=== PATIENT | male | born 1960 | race Caucasian/White ===

== ENCOUNTER 2017-06-09 14:04 | Inpatient (IN) | payer OTHER ==
[~2017-06-09] VITALS: Ht 182.9 cm; Wt 68.0 kg
[2017-06-09 18:41] VITALS: BP 114/77; PULSE 79; RESP 18; TEMP 97.7; O2SAT 97
[2017-06-09] MEDS ORDERED: diphenhydrAMINE HCL 50 MG CAP - HS PRN PO (19:15)
[2017-06-09] MEDS ORDERED: diphenhydrAMINE HCL 50 MG/ML VIAL IM PRN (19:15)
[2017-06-09] MEDS ORDERED: hydrOXYzine HCL 50 MG TAB PO PRN (19:15)
[2017-06-09] MEDS ORDERED: ALUMINUM/MAGNESIUM/SIMETH 30 ML CUP PO PRN (19:15)
[2017-06-09] MEDS ORDERED: diphenhydrAMINE HCL 50 MG/ML VIAL - HS PRN IM (19:15)
[2017-06-09] MEDS ORDERED: MAGNESIUM HYDROXIDE SUSP 30 ML CUP PO PRN (19:15)
[2017-06-09] MEDS ORDERED: LORazepam 1 MG TAB PO PRN (20:00)
[2017-06-09] MEDS ORDERED: FLUMAZENIL 0.5 MG/5 ML VIAL IV PUSH PRN (20:00)
[2017-06-09] MEDS ORDERED: diphenhydrAMINE HCL 50 MG CAP PO PRN (20:00)
[2017-06-09] MEDS ORDERED: LORazepam 2 MG TAB PO PRN (20:00)
[2017-06-09] MEDS ORDERED: HALOPERIDOL LACTATE 5 MG/ML AMP IM PRN (20:00)
[2017-06-09] MEDS ORDERED: LORazepam 2 MG/ML VIAL IV PUSH PRN ×4 (20:00)
[2017-06-09] MEDS: REMOVE OLD NICOTINE PATCH T-DERMAL SCH (20:31)
[2017-06-10 06:12] VITALS: BP 151/84; PULSE 80; RESP 16; TEMP 97.7; O2SAT 98
[2017-06-10 07:26] LABS: BICARBONATE 30.8 MEQ/L (21.0-32.0); BLOOD UREA NITROGEN 19 MG/DL (7-18); CALCIUM 8.2 MG/DL (8.5-10.1); CHLORIDE 107 MEQ/L (98-107); CHOLESTEROL 116 MG/DL (120-200); CREATININE 0.81 MG/DL (0.60-1.30); GLOMERULAR FILTRATION RATE 98 ML/MIN (>89); GLUCOSE,RANDOM 96 MG/DL (74-106); SODIUM (NA) 142 MEQ/L (136-145); TRIGLYCERIDES 54 MG/DL (42-150)
[2017-06-10 07:29] LABS: CHOLESTEROL/ HDL RATIO 1.86 RATIO; HDL CHOLESTEROL 62.1 MG/DL (40.0-60.0); LDL CHOLESTEROL 43 MG/DL (0-99)
[2017-06-10] MEDS: NICOTINE 21 MG/24 HR PATCH T-DERMAL SCH (09:00)
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
[2017-06-10] MEDS ORDERED: IBUPROFEN SUSP 100 MG/5 ML UDC PO PRN (14:00)
[2017-06-10 16:03] LABS: HEMOGLOBIN A1C 5.2 % (4.3-6.0)
[2017-06-10 16:45] VITALS: BP 124/78; PULSE 86; RESP 18; TEMP 99.3; O2SAT 96
[2017-06-10] MEDS: REMOVE OLD NICOTINE PATCH T-DERMAL SCH (20:37)
[2017-06-11] MEDS: IBUPROFEN 600 MG TAB PO PRN ×3 (04:26→16:55)
[2017-06-11 05:42] VITALS: BP 153/94; PULSE 85; RESP 18; TEMP 97.6; O2SAT 98
[2017-06-11] MEDS: NICOTINE 21 MG/24 HR PATCH T-DERMAL SCH (08:58)
[2017-06-11] MEDS: REMOVE OLD NICOTINE PATCH T-DERMAL SCH (08:59)
[2017-06-11] MEDS: FOLIC ACID 1 MG TAB PO SCH (09:00)
[2017-06-11] MEDS: THIAMINE HCL 100 MG TAB PO SCH (09:00)
--- NOTE | 2017-06-11 11:38 | HHI.PYPN ---
Subjective Chief Complaint: Depression Remarks Patient seen and examined with nurse. Chart reviewed. Case discussed with nursing staff. Patient refused EKG yesterday and so psychotropics were held yesterday evening. He slept most of the day yesterday per report. Case discussed in treatment team. On my examination today, the patient continues to complain of low mood, which he ties to his pain complaints. Endorses vague suicidal ideation but contracts for safety on the inpatient unit. Denies audiovisual hallucinations. Denies subjective complaints of withdrawal. Besides the chronic hand pain, no other physical complaints. Review of Systems Except as stated in HPI: all other systems reviewed are Neg Mental Status Examination Appearance: Disheveled Consciousness: Alert Orientation: x4 Motor Activity: Other (no hand tremor, no diaphoresis, no other signs of withdrawal noted. No other motor abnormalities noted.) Speech: Unremarkable Language: Adequate Fund of Knowledge: Adequate Attention and Concentration: Adequate Memory: Unremarkable Mood: Other (dysphoric) Affect: Blunt Thought Process & Associations: Intact, Logical, Linear Thought Content: Appropriate Hallucination Type: None Delusion Type: None Suicidal Ideation: Yes (vague) Suicidal Plan: No Suicidal Intention: No Homicidal Ideation: No Homicidal Plan: No Homicidal Intention: No Insight: Fair Judgment: Adequate (fair) Results Labs Labs reviewed. Patient did allow EKG and this was read as sinus rhythm with a QTcH of 407 ms, not prolonged. Vitals/IOs Vital Signs Date Time Temp Pulse Resp B/P (MAP) Pulse Ox O2 Delivery O2 Flow Rate FiO2 06/11/17 05:42 97.6 85 18 153/94 (113) 98 Assessment & Plan Problem List: (1) Adjustment disorder with depressed mood ICD Codes: F43.21 - Adjustment disorder with depressed mood (2) Polysubstance abuse ICD Codes: F19.10 - Other psychoactive substance abuse, uncomplicated Assessment & Plan Start Seroquel and Elavil this evening. To consider titrating these agents over the weekend to effect. Follow up hospitalist recommendations. Continue to monitor for withdrawal with CIWA. Continue to monitor on an inpatient unit. Continue other medications and care as ordered. Justification for Cont. Inpt. Monitoring for impairment in safety, none noted. Discharge Planning Possible discharge beginning of next week. Request HC Surrog/Guard Advoc?: No Raffy Doty MD Jun 11, 2017 11:38
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
--- NOTE | 2017-06-11 16:36 | RADRPT ---
EXAM DATE/TIME: 06/11/2017 16:08 [facility] COMPARISON: No previous studies available for comparison. INDICATIONS : Left hand pain. MEDICAL HISTORY : Depressive disorder. SURGICAL HISTORY : None. ENCOUNTER: Initial ACUITY: 4 - 6 months PAIN SCORE: 10/10 LOCATION: Left upper extremity whole left hand FINDINGS: Findings consistent with minimal erosive osteoarthritis in the DIPs and PIP joints. There is very mi nimal juxta-articular osteoporosis. No erosive changes. CONCLUSION: Probable osteoarthritis Equivocal findings of juxta-articular osteoporosis can be seen with inflammatory arthritis. Paul Parry MD FACR on June 11, 2017 at 16:33 Board Certified Radiologist. This report was verified electronically.
[2017-06-11 18:42] VITALS: PULSE 82; RESP 18; TEMP 97.6; O2SAT 99
[2017-06-11] MEDS: QUEtiapine FUMARATE 25 MG TAB PO SCH (19:56)
[2017-06-11] MEDS: AMITRIPTYLINE HCL 25 MG TAB PO SCH (19:56)
[2017-06-12 06:07] VITALS: BP 143/85; PULSE 71; RESP 16; TEMP 97.2
[2017-06-12] MEDS: THIAMINE HCL 100 MG TAB PO SCH (09:13)
[2017-06-12] MEDS: FOLIC ACID 1 MG TAB PO SCH (09:13)
[2017-06-12 10:35] LABS: ALBUMIN 3.3 GM/DL (3.4-5.0); DIRECT BILIRUBIN ADULT 0.1 MG/DL (0.0-0.2)
[2017-06-12 10:39] LABS: INDIRECT BILIRUBIN 0.6 MG/DL (0.0-0.8); TOTAL BILIRUBIN ADULT 0.7 MG/DL (0.2-1.0); TOTAL PROTEIN 6.8 GM/DL (6.4-8.2)
[2017-06-12 10:39] LABS: RHEUMATOID FACTOR SCREEN NEGATIVE (NEGATIVE)
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
[2017-06-12] MEDS: IBUPROFEN 600 MG TAB PO PRN ×2 (12:40→20:53)
[2017-06-12] MEDS ORDERED: cloNIDine HCL 0.1 MG TAB PO ONE (14:45)
[2017-06-12] MEDS: ACETAMINOPHEN 325 MG TAB PO PRN (15:57)
[2017-06-12 17:22] VITALS: BP 149/92; PULSE 76; RESP 18; TEMP 98.5; O2SAT 99
[2017-06-12] MEDS: QUEtiapine FUMARATE 25 MG TAB PO SCH (20:54)
[2017-06-12] MEDS: AMITRIPTYLINE HCL 25 MG TAB PO SCH (20:54)
[2017-06-12] MEDS: cloNIDine HCL 0.1 MG TAB PO SCH (20:55)
--- NOTE | 2017-06-13 00:12 | EKG ---
Date Performed: 06/11/2017 Time Performed: 12:59:20 PTAGE: 57 years EKG: Sinus rhythm MINIMAL VOLTAGE CRITERIA FOR LVH, CONSIDER NORMAL VARIANT BORDERLINE ECG NO PREVIOUS TRACING DOCTOR: Kevin Trivedi Interpretating Date/Time 06/13/2017 00:09:59
[2017-06-13] MEDS: cloNIDine HCL 0.1 MG TAB PO SCH ×3 (05:05→21:22)
[2017-06-13] MEDS: IBUPROFEN 600 MG TAB PO PRN ×3 (05:20→20:11)
[2017-06-13 05:44] VITALS: BP 121/88; PULSE 77; RESP 18; TEMP 98.1; O2SAT 98
[2017-06-13] MEDS: predniSONE 20 MG TAB PO SCH (09:36)
[2017-06-13] MEDS: FOLIC ACID 1 MG TAB PO SCH (09:36)
[2017-06-13] MEDS: THIAMINE HCL 100 MG TAB PO SCH (09:36)
[2017-06-13] MEDS: ACETAMINOPHEN 325 MG TAB PO PRN ×2 (09:37→16:03)
--- NOTE | 2017-06-13 11:25 | HHI.PYPN ---
Subjective Chief Complaint: Depression Remarks Pt seen and discussed with staff. He remains depressed but SI has decreased. He has been attending therapeutic groups. He states that he feels better when he gets out of bed and goal this afternoon is to stay in day area and participate in activities. He c/o of poor sleep. No SI/HI. Mental Status Examination Appearance: Disheveled Consciousness: Alert Orientation: x4 Motor Activity: Other (no hand tremor, no diaphoresis, no other signs of withdrawal noted. No other motor abnormalities noted.) Speech: Unremarkable Language: Adequate Fund of Knowledge: Adequate Attention and Concentration: Adequate Memory: Unremarkable Mood: Other (dysphoric) Affect: Blunt Thought Process & Associations: Intact, Logical, Linear Thought Content: Appropriate Hallucination Type: None Delusion Type: None Suicidal Ideation: Yes (decreased) Suicidal Plan: No Suicidal Intention: No Homicidal Ideation: No Homicidal Plan: No Homicidal Intention: No Insight: Fair Judgment: Adequate (fair) Results Vitals/IOs Vital Signs Date Time Temp Pulse Resp B/P (MAP) Pulse Ox O2 Delivery O2 Flow Rate FiO2 06/13/17 05:44 98.1 77 18 121/88 (99) 98 Assessment & Plan Problem List: (1) Adjustment disorder with depressed mood ICD Codes: F43.21 - Adjustment disorder with depressed mood (2) Polysubstance abuse ICD Codes: F19.10 - Other psychoactive substance abuse, uncomplicated Assessment & Plan Will titrate seroquel to 100mg PO QHS for mood and sleep. Estimated LOS: days Justification for Cont. Inpt. impairments in safety Request HC Surrog/Guard Advoc?: Brisa Lee MD Jun 13, 2017 11:25
--- NOTE | 2017-06-13 12:29 | HHI.PR ---
Subjective Remarks Patient seen and examined this morning. Afebrile less unstable. He is complaining of bilateral wrist pain. ESR is 15 and rheumatoid factor is negative so unlikely to be rheumatoid. This wrist pain is likely to be osteoarthritis. He is also currently withdrawing from alcohol. Objective Vitals Vital Signs Date Time Temp Pulse Resp B/P (MAP) Pulse Ox O2 Delivery O2 Flow Rate FiO2 06/13/17 05:44 98.1 77 18 121/88 (99) 98 06/12/17 17:22 98.5 76 18 149/92 (111) 99 Result Diagram: 06/10/17 0635 Imaging Last Impressions Hand X-Ray 06/11/17 0000 Signed Impressions: Service Date/Time: Sunday, June 11, 2017 16:08 - CONCLUSION: Probable osteoarthritis Equivocal findings of juxta-articular osteoporosis can be seen with inflammatory arthritis. Paul Parry MD FACR Objective Remarks GEN: Well-developed, well-nourished patient. No acute distress. CV: Regular rate and rhythm without obvious murmurs LUNGS: Clear to auscultation bilaterally. Normal respiratory effort. No wheezes , rales, rhonchi. GI: Soft, nontender, nondistended. No palpable masses. Bowel sounds WNL. EXT: No edema. NEURO/PSYCH: Afocal. Awake, alert, and oriented x3. Appropriate insight and judgment. Medications and IVs Current Medications Medications (Trade) Dose Ordered Sig/Josse Route Start Time Stop Time Status Last Admin (Atarax) 50 mg Q6H PRN PO 06/09/17 19:15 Future hold (Benadryl) 50 mg Q6H PRN PO 06/09/17 20:00 Future hold (Benadryl Inj) 50 mg Q6H PRN IM 06/09/17 19:15 Future hold (Benadryl) 50 mg HS PRN PO 06/09/17 19:15 Future hold (Milk Of Magnesia Liq) 30 ml DAILY PRN PO 06/09/17 19:15 (Mag-Al Plus Susp Liq) 30 ml Q6H PRN PO 06/09/17 19:15 (Ativan) 1 mg Q4H PRN PO 06/09/17 20:00 06/11/17 23:24 (Ativan Inj) 1 mg Q4H PRN IV PUSH 06/09/17 20:00 (Ativan) 2 mg Q2H PRN PO 06/09/17 20:00 (Ativan Inj) 2 mg Q2H PRN IV PUSH 06/09/17 20:00 (Ativan Inj) 2 mg Q1H PRN IV PUSH 06/09/17 20:00 (Ativan Inj) 2 mg Q15M PRN IV PUSH 06/09/17 20:00 (Romazicon Inj) 0.2 mg Q1M PRN IV PUSH 06/09/17 20:00 (Vitamin B1) 100 mg DAILY PO 06/11/17 09:00 06/13/17 09:36 (Folate) 1 mg DAILY PO 06/11/17 09:00 06/13/17 09:36 (SEROquel) 50 mg HS PO 06/10/17 21:00 Future hold 06/12/17 20:54 (Elavil) 25 mg HS PO 06/10/17 21:00 Future hold 06/12/17 20:54 (Deltasone) 20 mg DAILY PO 06/13/17 09:00 06/18/17 08:59 06/13/17 09:36 (Tylenol) 650 mg Q4H PRN PO 06/12/17 12:00 06/13/17 09:37 (Motrin) 600 mg Q6H PRN PO 06/12/17 12:15 06/13/17 05:20 (Catapres) 0.1 mg Q8HR PO 06/12/17 22:00 06/13/17 05:05 A/P Problem List: (1) Bilateral hand pain ICD Code: M79.641 - Pain in right hand; M79.642 - Pain in left hand (2) Hepatitis C ICD Code: B19.20 - Unspecified viral hepatitis C without hepatic coma Assessment and Plan 57-year-old male currently in the inpatient psychiatry unit with a PMH of hepatitis C, complaints of bilateral hand joint pain that began 4 months ago. OA of bilateral hands - Likely related to years of shereen - Left hand 2 view x-ray completed on 06/11 reviewed, probable osteoarthritis equivocal findings of juxta-articular osteoporosis can be seen with inflammatory arthritis. - ESR WNL, Ferritin 21 joint pain not likely from iron deposits in joints, RF negative, JUANA pending - Encouraged to use Ibuprofen as this will help with inflammation and pain, alternate with Tylenol - Short course of oral steroids Alcohol abuse -[facility] protocol Hepatitis C - Previously treated - Hepatic function stable DVT prophylaxis-ambulating. Discussed with nurse. Discharge Planning Pending psychiatry clearance Rosendo Pisano MD, R3 Jun 13, 2017 12:29
[2017-06-13 16:00] VITALS: BP 144/89; PULSE 86; RESP 17; TEMP 97.4; O2SAT 97
[2017-06-13] MEDS: AMITRIPTYLINE HCL 25 MG TAB PO SCH (20:11)
[2017-06-13] MEDS ORDERED: QUEtiapine FUMARATE 100 MG TAB PO SCH (21:00)
[2017-06-14] MEDS: cloNIDine HCL 0.1 MG TAB PO SCH ×2 (05:33→14:05)
[2017-06-14 05:44] VITALS: BP 132/83; PULSE 70; RESP 17; TEMP 98.5; O2SAT 98
[2017-06-14] MEDS: IBUPROFEN 600 MG TAB PO PRN ×2 (05:51→14:06)
[2017-06-14] MEDS ORDERED: CLON.1 PO (09:13)
[2017-06-14] MEDS ORDERED: AMIT25TA9 PO (09:13)
[2017-06-14] MEDS ORDERED: QUET1TAB8 PO (09:14)
[2017-06-14] MEDS ORDERED: FOLI1TAB6 PO (09:14)
[2017-06-14] MEDS ORDERED: THIA100 PO (09:14)
[2017-06-14] MEDS ORDERED: PRED20 PO (09:14)
--- NOTE | 2017-06-14 09:14 | HHI.DS ---
Psychiatry Discharge Summary Inpatient Psychiatric care?: Yes Advance Directive: No Reason Not Provided: unable to assess Mental Health AdvanceDirective: No Health Care Proxy: No Admission Admission Date Jun 09, 2017 at 18:17 Admission Diagnosis: (1) Adjustment disorder with depressed mood ICD Code: F43.21 - Adjustment disorder with depressed mood (2) Polysubstance abuse ICD Code: F19.10 - Other psychoactive substance abuse, uncomplicated Brief History Mr. Montelongo is a 57-year-old male with a reported history of depression, schizophrenia and bipolar disorder who presents in transfer from [facility] under a [place] [facility]. Documentation from [facility] reviewed. The [place] [facility] alleges that the patient said that he had a "new plan to kill himself, but refuses to tell what it is because he does not want to incriminate himself." Reviewing our electronic medical record, it appears this is the patient's first visit to [place]. The patient seen and examined with nurse. Chart reviewed. Case discussed with nursing staff. On my examination today, the patient presents as somewhat dysphoric and withdrawn. There is an underlying antisocial and manipulative quality to his presentation, however. He says that he has been feeling increasingly depressed secondary to chronic pain issues, chiefly to do with his hands, and I do note that his left hand is in a splint. He is somewhat withdrawn and anhedonic. He endorses suicidal ideation to hang himself, although he does contract for safety on the inpatient unit. The patient does report that his sleep is poor. No other depressive symptoms. No hypomanic or manic symptoms. He denies audiovisual hallucinations. I can elicit no clear delusional material although there is some suggestion of possibly some paranoia and feelings of thought manipulation. The remainder of the psychiatric ROS is negative. The patient has chronic musculoskeletal complaints, but otherwise no physical complaints at this time. Tobacco Use In Past 30 Days: Cigarettes But Not Daily Alcohol Use: 2-3 Times Per Week Hospital Course Patient was admitted to a locked, inpatient psychiatric unit. A general medical consultation was obtained. Appropriate precautions were in place throughout patient's hospital stay. Patient was seen and examined on the unit by psychiatry and visited by counselor. Psychotropic medications were adjusted. Patient tolerated medication changes well without side effects. Patient had improvement in presenting psychiatric symptomatology during the course of his hospital stay. There was no evidence of any suicidality or homicidality on the inpatient unit. Patient remained in generally good behavioral control and was medication compliant. On the day of discharge: Patient seen and examined with nurse. Chart reviewed. Case discussed with nursing staff. No behavioral issues overnight. Case discussed with counselor. On my examination today, the patient is requesting discharge from the inpatient psychiatric unit today. He denies any suicidal or homicidal ideation , intent or plan on direct questioning and contracts for safety. His mood is improved and I can elicit no depressive or hypomanic/manic symptoms. He denies any audiovisual hallucinations. I can elicit no delusional beliefs. There is no evidence of any impairment in reality construction. He is future oriented. He denies side effects from medications. He reports that the pain in his hands is improved and notes that he plans to follow-up on the hospitalist recommendations after discharge. He has no other physical complaints. Suicide and violence risk assessment on day of discharge both suggest lower imminent risk, and the patient's level of function is adequate for outpatient care. The patient has maximized benefit from this inpatient psychiatric hospital stay and will be discharged today with psychiatric follow-up as arranged by counselor. Patient is also to follow-up with primary care. I counseled the patient to abstain from any substances of abuse. I counseled the patient regarding warning signs for need to return to the psychiatric emergency room as part of a general safety plan. Results Blood Pressure 132 / 83 Vital Signs Date Time Temp Pulse Resp B/P (MAP) Pulse Ox O2 Delivery O2 Flow Rate FiO2 06/14/17 05:44 98.5 70 17 132/83 (99) 98 Laboratory Tests Test 06/12/17 09:15 06/12/17 09:16 Ferritin 21 NG/ML (26-388) Aspartate Amino Transf (AST/SGOT) 13 U/L (15-37) Albumin 3.3 GM/DL (3.4-5.0) Laboratory Results Test 06/10/17 06:35 Cholesterol Level 116 MG/DL (120-200) HDL Cholesterol 62.1 MG/DL (40.0-60.0) Hemoglobin A1c 5.2 % (4.3-6.0) LDL Cholesterol 43 MG/DL (0-99) Triglycerides Level 54 MG/DL (42-150) Summary of Procedures None done Imaging Last Impressions Hand X-Ray 06/11/17 0000 Signed Impressions: Service Date/Time: Sunday, June 11, 2017 16:08 - CONCLUSION: Probable osteoarthritis Equivocal findings of juxta-articular osteoporosis can be seen with inflammatory arthritis. Paul Parry MD FACR Pending results at discharge: No Medications # of Antipsychotic meds at D/C: 1 Approp Antipsych med options 1 - Minimum of three failed multiple trials of monotherapy. 2 - Documented plan to taper to monotherapy due to previous use of multiple meds OR cross-taper in progress at D/C. 3 - Documentation of augmentation of Clozapine. 4 - Justification other than those listed in allowable values 1-3, document here : Discharge Discharge Date: Jun 14, 2017 Discharge Diagnosis: (1) Adjustment disorder with depressed mood Diagnosis: Principal (resolved) ICD Code: F43.21 - Adjustment disorder with depressed mood (2) Polysubstance abuse Diagnosis: Secondary ICD Code: F19.10 - Other psychoactive substance abuse, uncomplicated Pt Condition on Discharge: Stable Discharge Disposition: Discharge Home Discharge Instructions Diet Instructions: As Tolerated, No Restrictions Activities you can perform: Weight Bearing as Terrance Scheduled Appointment: as per counselor's notes New Medications: Amitriptyline (Amitriptyline) 25 Mg Tab 25 MG PO HS for MENTAL HEALTH for 15 Days, TAB 1 Refill Clonidine (Catapres) 0.1 Mg Tab 0.1 MG PO Q8HR for Blood Pressure Management for 15 Days, TAB 1 Refill Folic Acid (Folic Acid) 1 Mg Tablet 1 MG PO DAILY for Nutritional Supplement for 15 Days, #15 TAB 1 Refill Prednisone (Prednisone) 20 Mg Tab 20 MG PO DAILY for HEALTH for 3 Days, #3 TAB 0 Refills Quetiapine (Quetiapine) 100 Mg Tab 100 MG PO HS for MENTAL HEALTH for 15 Days, TAB 1 Refill Thiamine HCl (Gnp Vitamin B-1) 100 Mg Tab 100 MG PO DAILY for Nutritional Supplement for 15 Days, #15 TAB 1 Refill Discharge Time > 30 minutes Mental Status Examination Appearance: Appropriate Consciousness: Alert Orientation: x4 Motor Activity: Other (no motor abnormalities noted. No signs of withdrawal noted.) Speech: Unremarkable Language: Adequate Fund of Knowledge: Adequate Attention and Concentration: Adequate Memory: Unremarkable Mood: Appropriate Affect: Appropriate Thought Process & Associations: Intact, Logical, Goal directed, Linear Thought Content: Appropriate Hallucination Type: None Delusion Type: None Suicidal Ideation: No Suicidal Plan: No Suicidal Intention: No Homicidal Ideation: No Homicidal Plan: No Homicidal Intention: No Insight: Fair Judgment: Adequate (fair) Discharge/Advance Care Plan Health Problems: (1) Adjustment disorder with depressed mood (2) Polysubstance abuse Goals to promote your health * To prevent worsening of your condition and complications * To maintain your health at the optimal level Directions to meet your goals Take your medications as prescribed Follow your dietary instruction Follow activity as directed Keep your appointments as scheduled Take your immunizations and boosters as scheduled If your symptoms worsen call your PCP, if no PCP go to Urgent Care Center or Emergency Room For 23/11 questions related to your inpatient stay or results of tests pending at discharge, please contact Dr. Raffy Doty at Smoking is Dangerous to Your Health. Avoid second hand smoking Raffy Doty MD Jun 14, 2017 09:14
[2017-06-14] MEDS: predniSONE 20 MG TAB PO SCH (09:26)
[2017-06-14] MEDS: THIAMINE HCL 100 MG TAB PO SCH (09:26)
[2017-06-14] MEDS: FOLIC ACID 1 MG TAB PO SCH (09:26)
--- NOTE | 2017-06-14 11:48 | HHI.PR ---
Subjective Remarks Imaging reviewed with the patient. X-ray of his left wrist shows evidence of osteoarthritis. This is discussed with the patient. He may also have an underlying carpal tunnel syndrome but treatment for osteoarthritis needs to occur prior to this diagnosis. Objective Vital Signs Date Time Temp Pulse Resp B/P (MAP) Pulse Ox O2 Delivery O2 Flow Rate FiO2 06/14/17 05:44 98.5 70 17 132/83 (99) 98 06/13/17 16:00 97.4 86 17 144/89 (107) 97 Result Diagram: 06/10/17 0635 Objective Remarks GENERAL: NAD, A&Ox3 HEAD: Normocephalic. NECK: Supple, trachea midline. No lymphadenopathy. EYES: No scleral icterus. No injection or drainage. CARDIOVASCULAR: Regular rate and rhythm without murmurs, gallops, or rubs. RESPIRATORY: Breath sounds equal bilaterally. No accessory muscle use. GASTROINTESTINAL: Abdomen soft, non-tender, nondistended. MUSCULOSKELETAL: No cyanosis, or edema. Left wrist is in a brace. SKIN: Warm and dry. NEURO: No focal neurological deficitis. A/P Problem List: (1) Bilateral hand pain ICD Code: M79.641 - Pain in right hand; M79.642 - Pain in left hand (2) Hepatitis C ICD Code: B19.20 - Unspecified viral hepatitis C without hepatic coma (3) Polysubstance abuse ICD Code: F19.10 - Other psychoactive substance abuse, uncomplicated (4) Adjustment disorder with depressed mood ICD Code: F43.21 - Adjustment disorder with depressed mood Assessment and Plan 57-year-old male currently in the inpatient psychiatry unit with a PMH of hepatitis C, complaints of bilateral hand joint pain that began 4 months ago. 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
== END 2017-06-14 15:15 | disposition home or self-care (01) | DRG 881 ==
LOC: H270 18:17
PROVIDERS: ADMIT Psychiatry & Neurology Psychiatry; ATTEND Psychiatry & Neurology Psychiatry
DX: F43.21 Adjustment disorder with depressed mood (principal); R45.851 Suicidal ideations; F10.239 Alcohol dependence with withdrawal, unspecified; G89.29 Other chronic pain; M19.042 Primary osteoarthritis, left hand; M81.0 Age-related osteoporosis without current pathological fracture; M19.041 Primary osteoarthritis, right hand; G56.02 Carpal tunnel syndrome, left upper limb; Y90.9 Presence of alcohol in blood, level not specified; Z72.0 Tobacco use; Z59.0 Homelessness; Z86.19 Personal history of other infectious and parasitic diseases; Z81.8 Family history of other mental and behavioral disorders; Z91.5 Personal history of self-harm
CPT/HCPCS: 73120; 80048; 80061; 80076; 82728; 83036; 84443; 85652; 86038; 86430; 93005; J7512